=== PATIENT | female | born 1945 | race Caucasian/White ===

== ENCOUNTER → 2017-02-15 | Day surgery (SDC) | payer MEDICARE, BC ==
[~2017-02-15] MED LIST: Lactated Ringers 1,000 ML IV SCH; Propofol 200 MG/20 ML SDV IV ONE
--- NOTE | 2017-02-15 09:38 | OR ---
DATE OF OPERATION: 02/15/2017 PREOPERATIVE DIAGNOSIS: FAMILY HISTORY OF COLON CA. POSTOPERATIVE DIAGNOSIS: FAMILY HISTORY OF COLON CA. SURGEON: Laurent Barboza MD PROCEDURE: FULL-LENGTH COLONOSCOPY. ANESTHESIA: LEAD SOLUTIONS ARCHITECT. COMPLICATIONS: None. SPECIMEN: None. FINDINGS: Normal full-length colonoscopy. RECOMMENDATIONS: Followup colonoscopy in 5 years. INDICATIONS: The patient has a brother with a history of colon cancer. She is due for a 5 year routine scope. DESCRIPTION OF PROCEDURE: The patient was prepped and draped, placed in the left lateral decubitus position. A lubricated Olympus colonoscope was inserted and easily advanced to the cecum. Direct visualization of the ileocecal valve and appendiceal orifice was accomplished. The bowel prep was excellent. Upon withdrawal of the scope throughout the entire length of the colon, I found no signs of any polyps, masses, ulcerations, or bleeding sites. No vascular abnormalities or signs of colitis. There were no obvious diverticuli. The rectal vault was unremarkable. Retroflexion of the scope in the rectum showed no perianal lesions. Air was then suctioned. Scope was removed without complication. SHENG/CINTHIA /[id number]
== END ==
LOC: CC.SDS 07:09
PROVIDERS: ATTEND Family Medicine
DX: Z12.11 Encounter for screening for malignant neoplasm of colon (principal); Z80.0 Family history of malignant neoplasm of digestive organs; I10 Essential (primary) hypertension; Z79.899 Other long term (current) drug therapy
CPT/HCPCS: G0105; J2704; J7120; 00810

== ENCOUNTER 2017-03-27 14:55 | Emergency (ER) | payer MEDICARE, BC ==
--- NOTE | 2017-03-27 15:22 | EDM.PDOC ---
ED HPI GENERAL MEDICAL PROBLEM - General Chief Complaint: Laceration Stated Complaint: head laceration Time Seen by Provider: 03/27/17 15:09 Source of Information: Reports: Patient History Limitations: Reports: No Limitations - History of Present Illness INITIAL COMMENTS - FREE TEXT/NARRATIVE: states that she was taking the garbage out when she fell and the corner of the garbage can hit her on the right side of her head. She has 2.2 cm laceration to the right temporal area. Minimal amount of bleeding noted. Did not have any LOC. Also has small abrasion to the right 3rd finger. Is able to move it and no bleeding noted from it. 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 Right Head Pain Score (Numeric/FACES): 3 - Related Data Allergies Allergy/AdvReac Type Severity Reaction Status Date / Time No Known Allergies Allergy Verified 03/27/17 15:04 Home Meds: Home Meds Lisinopril 10 mg PO DAILY 02/13/17 [History] Multivitamin [Multi-Vitamin Daily] 1 each PO DAILY 02/13/17 [History] Social & Family History - Tobacco Core Measures Tobacco Use/Smoking Within Last 30 Days: No ED ROS GENERAL - Review of Systems Review Of Systems: See Below Constitutional: Denies: Fever, Chills HEENT: Denies: Ear Pain, Vision Change Respiratory: Reports: No Symptoms Cardiovascular: Reports: No Symptoms GI/Abdominal: Reports: No Symptoms Skin: Reports: Wound (right forehead) ED EXAM, SKIN/RASH Exam: See Below Exam Limited By: No Limitations General Appearance: Alert, WD/WN, Mild Distress Ears: Normal Canal Nose: Normal Inspection Throat/Mouth: Normal Inspection Head: Normocephalic Neck: Normal Inspection, Supple, Non-Tender, Full Range of Motion Respiratory/Chest: No Respiratory Distress, Lungs Clear Cardiovascular: Regular Rate, Rhythm Skin: Warm, Dry Location, Skin: Head (right forehead.) ED SKIN PROCEDURES - Laceration/Wound Repair Right Lateral Forehead Lac/Wound length In cm: 2.2 Appearance: Linear Skin Prep: Saline Exploration/Debridement/Repair: In a Bloodless Field Closed with: Anna # of Sutures: 3 Sterile Dressing Applied: None Tetanus Status Addressed: Yes Complications: No Course - Vital Signs Last Recorded V/S: Last Vital Signs Temp 97.9 F 03/27/17 15:01 Pulse 77 03/27/17 15:01 Resp 20 03/27/17 15:01 BP 154/111 H 03/27/17 15:01 Pulse Ox 99 03/27/17 15:01 Departure - Departure Time of Disposition: 15:20 Disposition: Home, Self-Care 01 Condition: Good Clinical Impression: Laceration - Discharge Information Instructions: Laceration Care, Adult, [id number] Forms: ED Department Discharge Additional Instructions: anna out in 10 days may shower and then dry well. Antibiotic ointment to cover it for the next 3-4 days Recheck if any concerns - Problem List & Annotations (1) Laceration SNOMED Code(s): 836753396 Code(s): XII6094 - Status: Acute Priority: High - Problem List Review Problem List Initiated/Reviewed/Updated: Yes
== END 2017-03-27 15:28 | disposition home or self-care (01) ==
LOC: CC.ED 14:55
DX: S01.81XA Laceration without foreign body of other part of head, initial encounter (principal); Z79.899 Other long term (current) drug therapy; W01.198A Fall on same level from slipping, tripping and stumbling with subsequent striking against other object, initial encounter
CPT/HCPCS: 12011; 99282

== ENCOUNTER 2024-03-24 09:05 | Emergency (ER) | payer MEDICARE ==
[2024-03-24 11:01] LABS: BASOPHILS ABSOLUTE AUTO 0.02 10^3/uL (0.00-0.50); BASOPHILS PERCENT AUTO 0.3 % (0-1); EOSINOPHILS ABSOLUTE AUTO 0.03 10^3/uL (0.00-1.50); EOSINOPHILS PERCENT AUTO 0.4 % (0-6); HEMATOCRIT 42.6 % (37.0-47.0); HEMOGLOBIN 14.1 g/dL (12.0-16.0); IMMATURE GRAN ABSOLUTE AUTO 0.02 10^3/uL (0.00-0.49); IMMATURE GRAN PERCENT AUTO 0.3 % (0.0-4.9); LYMPHOCYTES ABSOLUTE AUTO 1.43 10^3/uL (0.60-5.00); LYMPHOCYTES PERCENT AUTO 19.9 % (24-44); MEAN CORPUSCULAR HEMOGLOBIN 29.4 pg (27.0-32.0); MEAN CORPUSCULAR HGB CONC 33.1 g/dL (32.0-36.0); MEAN CORPUSCULAR VOLUME 88.9 fL (83.0-97.0); MONOCYTES ABSOLUTE AUTO 0.33 10^3/uL (0.00-1.50); MONOCYTES PERCENT AUTO 4.6 % (0-10); NEUTROPHILS ABSOLUTE AUTO 5.37 x10^3/uL (1.80-8.00); NEUTROPHILS PERCENT AUTO 74.5 % (41-71); PLATELET COUNT,PLT 223 10^3/uL (150-400); RED BLOOD CELL COUNT 4.79 x10^6/uL (4.00-5.50); WHITE BLOOD CELL COUNT,WBC 7.2 10^3/uL (4.0-11.0)
[2024-03-24 11:15] LABS: ALANINE AMINOTRANSFERASE,ALT 21 U/L (12-78); ALBUMIN 4.4 g/dL (3.4-5.0); ALKALINE PHOSPHATASE 62 U/L (46-116); ASPARTATE AMNIOTRANSFERASE,AST 19 U/L (15-37); BLOOD UREA NITROGEN,BUN 24 mg/dL (7-18); CARBON DIOXIDE,CO2 32 mmol/L (21-32); CHLORIDE,CL 105 mEq/L (98-106); GLUCOSE RANDOM 96 mg/dL (75-99); POTASSIUM,K 4.1 mEq/L (3.5-5.0); PROTEIN TOTAL,TP 7.5 g/dL (6.4-8.2); SODIUM,NA 144 mEq/L (136-145)
[2024-03-24 11:17] LABS: ESTIMATED GFR 58 mL/min (>=60)
== END 2024-03-24 11:30 | disposition home or self-care (01) ==
LOC: CC.ED 09:05
DX: J32.9 Chronic sinusitis, unspecified (principal); F41.9 Anxiety disorder, unspecified; I10 Essential (primary) hypertension; Z79.2 Long term (current) use of antibiotics; Z79.899 Other long term (current) drug therapy
CPT/HCPCS: 36415; 70450; 80053; 85025; 99284